=== PATIENT | female | born 1970 | race Two or more races ===

== ENCOUNTER 2017-07-06 07:00 | Outpatient (CLI) | payer OTHER | END 2017-07-06 07:01 | disposition home or self-care (01) | LOC: BICULT 07:00 | PROVIDERS: ATTEND Family Medicine | DX: R10.11 Right upper quadrant pain (principal) | CPT/HCPCS: 76705 ==

== ENCOUNTER 2017-08-04 07:34 | Outpatient (CLI) | payer BC ==
--- NOTE | 2017-08-04 12:42 | NM ---
39 minutes. After administration of fatty meal, there is good excretion of radiotracer to th e bowel with a gallbladder ejection fraction of 88%. IMPRESSION: Normal hepatobiliary scan and gallbladder ejection fraction. POS: IDALIA
--- NOTE | 2017-08-05 08:42 | NM ---
RADIONUCLIDE HEPATOBILIARY SCAN AND EJECTION FRACTION: HISTORY: Right upper quadrant pain. FINDINGS: Early images show physiologic uptake of radiotracer throughout the hepatic parenchyma. Gallbladder i s first imaged at 7 minutes. Uptake is apparent within the small bowel at 26 minutes. After adminis tration fatty meal, there is progressive excretion to the small bowel. Ejection fraction is calculat ed at 88%. IMPRESSION: Normal hepatobiliary scan and gallbladder ejection fraction. POS: CAROLYN
== END 2017-08-04 07:35 | disposition home or self-care (01) ==
LOC: NM 07:34
PROVIDERS: ATTEND Family Medicine
DX: R10.11 Right upper quadrant pain (principal)
CPT/HCPCS: 78227; A9537

== ENCOUNTER 2018-02-07 08:23 | Outpatient (CLI) | payer BC | END 2018-02-07 08:24 | disposition home or self-care (01) | LOC: BICMAMMO 08:23 | PROVIDERS: ATTEND Obstetrics & Gynecology | DX: Z12.31 Encounter for screening mammogram for malignant neoplasm of breast (principal) | CPT/HCPCS: 77063; 77067 ==

== ENCOUNTER 2019-09-29 06:35 | Day surgery (SDC) | payer BC ==
[2019-09-22 09:34] VITALS: BMI 29.3
--- NOTE | 2019-09-29 07:19 | HP ---
HISTORY OF PRESENT ILLNESS: Ms. Roland is known to us from prior evaluation and surgery for back pain and radiculopathy. She returns today for continued pain in her neck and also bilateral C5 pains right greater than left. She has been receiving epidural steroid injections with Dr. Vazquez. While the 1st did not help much, the 2nd seems to have made some difference. This is in the setting of a new MRI from the [facility] from May of 2019. It revealed severe left-sided neuroforaminal narrowing at C4-5 above her prior ACDF site as well as mild to moderate neural foraminal narrowing on the right. I feel this is the likely culprit of her symptoms. PAST MEDICAL HISTORY: Significant for depression, migraine headaches, and seasonal allergies. PAST SURGICAL HISTORY: Tonsillectomy, ACDF, and hiatal hernia. CURRENT MEDICATIONS: 1. Generic Mucinex. 2. Christal. ALLERGIES: TO SULFA MEDICATIONS, IODINE, AND DYES. PHYSICAL EXAMINATION: The patient is alert and oriented x3. Gait is normal. No ataxia. Bilateral upper and lower extremities are normal. She does have a positive right Spurling's maneuver. ASSESSMENT: Cervical radiculopathy. PLAN: Dr. Long met with the patient, reviewed imaging, and advocated for C4-C5 ACDF. He explained to the patient the risks, benefits, and alternatives to the procedure. The patient expressed understanding and elected to move forward with surgery as discussed. I do believe the patient is mentally competent and capable of making medical decisions for herself. We will move forward with surgery as planned. Job ID: [id number]
[2019-09-29] MEDS ORDERED: Thrombin 5000 UNITS/5 ML VIAL ONE (08:29)
[2019-09-29] MEDS ORDERED: Fentanyl 100 MCG/2 ML VIAL ONE ×3 (08:31→11:40)
[2019-09-29] MEDS ORDERED: PHENYLEPHRINE-NS 100 MCG/ML 10 ML SYRINGE ONE (10:13)
[2019-09-29] MEDS ORDERED: Rocuronium Bromide 10 MG/ML (10ML VIAL) ONE (10:13)
[2019-09-29] MEDS ORDERED: PROPOFOL 200 MG/20 ML VIAL ONE (10:13)
[2019-09-29] MEDS ORDERED: Lidocaine 1% PF 5 ML VIAL ONE (10:13)
[2019-09-29] MEDS ORDERED: Dexamethasone 20 MG/5 ML VIAL ONE (10:13)
[2019-09-29] MEDS ORDERED: Ondansetron PF 4 MG/2 ML Vial ONE (10:13)
[2019-09-29] MEDS ORDERED: Glycopyrrolate 0.2 MG/ML 5 ML SYRINGE ONE (10:13)
[2019-09-29] MEDS ORDERED: Meperidine HCl/PF 25 MG/ML VIAL ONE (10:28)
[2019-09-29] MEDS ORDERED: HYDROcodone/Acetaminophen 5/325 mg Tablet ONE ×2 (14:35)
--- NOTE | 2019-09-29 14:52 | OP ---
DATE OF PROCEDURE: 09/29/2019 [employer]: Oleg Lee PA-C INDICATION: Pain. DIAGNOSIS: Adjacent segment cervical spondylosis with radiculopathy. PROCEDURE PERFORMED: Reoperation of anterior cervical discectomy and fusion C4-C5, exploration of fusion. ANESTHESIA: General. DESCRIPTION OF PROCEDURE: The patient was brought into the operating room and placed under general anesthesia. She was placed on table in a supine position. A transverse incision was planned over the lateral aspect of the neck on the right. Following a preoperative pause, the incision was created. The underlying platysma muscle was identified and incised. A blunt tissue plane anterior to the sternocleidomastoid muscle was used to gain access to the prevertebral space. Self-retaining retractors were placed. The patient's prior fusion construct was identified. There was a substantial degree of ectopic bone around the plate. This was carefully removed with Kerrisons and curettes. We then focused our attention on the C4-C5 disk space for disk material as well as anterior and posterior osteophytes were removed. After completing the decompression, a 7-mm lordotic PEEK cage packed with allograft and autograft material was placed within the interbody space. The wound was then irrigated. Hemostasis was maintained throughout. The wound was then closed in anatomic layers and a pressure dressing was applied. There were no known procedural complications. Job ID: [id number]
== END 2019-09-29 15:05 | disposition home or self-care (01) ==
LOC: SDC 06:35
PROVIDERS: ATTEND Neurological Surgery
PROC: 0RG10A0 Fusion of Cervical Vertebral Joint with Interbody Fusion Device, Anterior Approach, Anterior Column, Open Approach (ICD-10-PCS; principal; 2019-09-29)
PROC: 0RT30ZZ Resection of Cervical Vertebral Disc, Open Approach (ICD-10-PCS; principal; 2019-09-29)
DX: M54.12 Radiculopathy, cervical region (principal); F32.9 Major depressive disorder, single episode, unspecified; G43.909 Migraine, unspecified, not intractable, without status migrainosus; Z88.2 Allergy status to sulfonamides; Z91.013 Allergy to seafood; Z91.018 Allergy to other foods; Z91.041 Radiographic dye allergy status
CPT/HCPCS: 76000; C1776; J0690; J2175; J3010

== ENCOUNTER 2022-08-28 08:32 | Outpatient (CLI) | payer BC | END 2022-08-28 08:33 | disposition home or self-care (01) | LOC: SCSCT 08:32 | PROVIDERS: ATTEND Family Medicine | DX: N23 Unspecified renal colic (principal); N28.9 Disorder of kidney and ureter, unspecified | CPT/HCPCS: 74176 ==

== ENCOUNTER 2023-11-30 08:29 | Outpatient (CLI) | payer BC | END 2023-11-30 08:30 | disposition home or self-care (01) | LOC: SCSRAD 08:29 | PROVIDERS: ATTEND Family Medicine | DX: M54.6 Pain in thoracic spine (principal); M47.814 Spondylosis without myelopathy or radiculopathy, thoracic region | CPT/HCPCS: 72072 ==